=== PATIENT | female | born 1975 | race Caucasian/White ===

== ENCOUNTER 2017-08-13 06:15 | Observation (INO) | payer OTHER ==
[2017-08-13] MEDS ORDERED: SCOPOLAMINE HYDROBROMIDE 1 MG/3 DAYS PATCH TD ONE (07:07)
[2017-08-13] MEDS ORDERED: FLUMAZENIL 0.5 MG/5 ML MDV IVP PRN (07:07)
[2017-08-13] MEDS ORDERED: NS 1,000 ML IV ONE (07:07)
[2017-08-13] MEDS ORDERED: DEXAMETHASONE 10 MG/ML VIAL IVP ONE (07:07)
[2017-08-13] MEDS ORDERED: NALOXONE HCL 0.4 MG/ML INJ IVP PRN ×2 (07:07→08:27)
[2017-08-13] MEDS ORDERED: HEPARIN 10,000 UNIT/10 ML MDV IVP PRN (07:07)
[2017-08-13] MEDS ORDERED: PROTAMINE SULFATE 50 MG/5 ML VIAL IVP PRN (07:07)
[2017-08-13] MEDS ORDERED: MEPERIDINE 25 MG/ML SYR IVP PRN (07:07)
[2017-08-13] MEDS ORDERED: MIDAZOLAM 2 MG/2 ML VIAL IVP PRN (07:07)
[2017-08-13] MEDS ORDERED: KETOROLAC 30 MG/1 ML SDV IVP ONE (07:07)
[2017-08-13] MEDS ORDERED: fentaNYL 100 MCG/2 ML INJ IVP PRN (07:07)
[2017-08-13 08:16] LABS: INR 1.09 (0.83-1.16); PROTIME(PATIENT) 14.3 SEC (12.0-15.0)
[2017-08-13] MEDS ORDERED: HYDROmorphONE/DILAUDID 6 MG/30 ML PCA IV PRN (08:27)
--- NOTE | 2017-08-13 08:30 | PDGENHP ---
History & Physical Chief Complaint: SYMTOMATIC UERINE FIBROIDS History of Present Illness: PLEASE SEE PREVIOUS CONSULT. NO CHANGE SINCE CONSULT. Pertinent Past, Social, Family History: N/A Relevant Physical Exam: KNOWN FIBROIDS. Cardiorespiratory Assessment: RRR,CTA
--- NOTE | 2017-08-13 08:32 | PDPROPOC ---
Sedation Plan of Care Sedation Plan of Care: vital signs stable, mental status noted, patient educated of risks, benefits, alternatives, patient can tolerate sedation ASA Classification: ASA 1 Planned drugs: fentanyl, midazolam Mallampati Score: Class 1 Mallampati Reference Image: Patient passed 3-3-2 rule?: Yes
[2017-08-13] MEDS ORDERED: ONDANSETRON 4 MG/2 ML VIAL ONE (09:40)
[2017-08-13] MEDS ORDERED: IOPAMIDOL (ISOVUE-300) 100 ML BTL ONE (10:02)
[2017-08-13] MEDS ORDERED: BISACODYL 10 MG SUPP PR PRN (11:12)
[2017-08-13] MEDS ORDERED: PROMETHAZINE HCL 25 MG/ML INJ IVP PRN (11:12)
[2017-08-13] MEDS ORDERED: POLYETHYLENE GLYCOL 3350 17 GM PKT PO PRN (11:12)
[2017-08-13] MEDS ORDERED: ONDANSETRON 4 MG/2 ML VIAL IVP PRN (11:12)
[2017-08-13] MEDS ORDERED: MAGNESIUM HYDROXIDE 30 ML UDCUP PO PRN (11:12)
[2017-08-13] MEDS ORDERED: LACTULOSE 20 GM/30 ML UDCUP PO PRN (11:12)
[2017-08-13] MEDS ORDERED: NS 1,000 ML IV SCH (11:15)
--- NOTE | 2017-08-13 11:25 | PDRADPN ---
Radiology Procedure Note Date of Procedure: 08/13/17 Radiologist: Blanche Garcia Anesthesia: IV Sedation (fentanyl and versed) Pre-op Diagnosis: symptomatic fibroids Post-op Diagnosis: same Indication: worsening symptoms. See consult Procedure: UAE Finding(s): L>R UA distribution. Inf/Abcess present in the surg proc area at time of surgery?: No Depth: Superfical (Skin SQ) Complications: none
[2017-08-13] MEDS: KETOROLAC 30 MG/1 ML SDV IVP SCH ×2 (13:59→22:17)
[2017-08-13] MEDS: SENNOSIDES 17.6 MG/10 ML UDL PO SCH ×2 (16:18→22:07)
[2017-08-13] MEDS ORDERED: FUROSEMIDE 20 MG TAB PO PRN (21:58)
[2017-08-13] MEDS ORDERED: BIOTENE DRY MOUTH MOUTHWASH 237 ML BTL MM PRN (22:00)
[2017-08-13] MEDS ORDERED: SPIRONOLACTONE 25 MG TAB PO SCH ×2 (22:00→22:30)
[2017-08-13] MEDS ORDERED: HYDROCODONE/APAP 5/325 TAB PO PRN (22:01)
[2017-08-13] MEDS ORDERED: CARVEDILOL 25 MG TAB PO SCH (22:15)
[2017-08-13] MEDS: CARVEDILOL 25 MG TAB PO SCH (23:36)
[2017-08-13] MEDS: ACETAMINOPHEN 500 MG TAB PO PRN (23:36)
[2017-08-14] MEDS: KETOROLAC 30 MG/1 ML SDV IVP SCH ×2 (04:38→10:15)
[2017-08-14 04:50] VITALS: O2SAT 97
[2017-08-14] MEDS: ACETAMINOPHEN 500 MG TAB PO PRN (04:50)
[2017-08-14] MEDS: CARVEDILOL 25 MG TAB PO SCH (08:09)
[2017-08-14 08:10] VITALS: BP 87/55; PULSE 62
[2017-08-14 08:47] VITALS: RESP 18; TEMP 98.6
[2017-08-14] MEDS ORDERED: SPIRONOLACTONE 25 MG TAB PO SCH (09:00)
[2017-08-14] MEDS ORDERED: FUROSEMIDE 20 MG TAB PO SCH (09:00)
[2017-08-14] MEDS ORDERED: LOSARTAN POTASSIUM 25 MG TAB PO SCH (09:00)
[2017-08-14] MEDS ORDERED: levOFLOXACIN 500 MG/DEXTROSE 100 ML IV ONE (09:00)
--- NOTE | 2017-08-14 10:34 | SOAPPROG ---
SOAP Progress Note Assessment/Plan: Assessment: Right on course post UAE for symptomatic fibroids. Concerned about interaction between anti-inflammatories and her heart medication. We had an extensive discussion. [facility], there may be side effects. Short term, about a week, I feel is safe for this patient. We discussed the regiment and how to taper off of Ibuprofen within a week. Plan: 1. D/C home today 2. Detailed D/C instructions and phone numbers given to patient 3. Patient's home care specialist was present and expressed full understanding. 08/14/17 10:32 Subjective: No complaints. Has not used [employer] since early last evening. Did not feel well with OxyIR. has only been on Tylenol and Toradol. Objective: Vital Signs Temp Pulse Resp BP Pulse Ox 37 C 62 18 87/55 L 97 08/14/17 08:00 08/14/17 08:09 08/14/17 08:00 08/14/17 09:08 08/14/17 08:00 08/13/17 08/14/17 08/15/17 05:59 05:59 05:59 Intake Total 3065 Output Total 1950 600 Balance 1115 -600 PT 14.3 SEC (12.0-15.0) 08/13/17 07:55 INR 1.09 (0.83-1.16) 08/13/17 07:55 Groin incision without hematoma. Dressing removed; scopolamine patch removed. abd soft. ICD10 Worksheet Patient Problems: Problems Problem Status Onset Dysmenorrhea Acute Submucous uterine fibroid Acute
[2017-08-14] MEDS: SENNOSIDES 17.6 MG/10 ML UDL PO SCH (10:37)
[2017-08-14] MEDS ORDERED: IBUPROFEN 600 MG TAB PO SCH (12:00)
== END 2017-08-14 10:45 | disposition home or self-care (01) ==
LOC: FIMAGING 06:15 → F3E 11:12 → FOB 13:03
PROVIDERS: ADMIT Radiology Diagnostic Radiology; ATTEND Radiology Diagnostic Radiology
DX: D25.9 Leiomyoma of uterus, unspecified (principal); I11.0 Hypertensive heart disease with heart failure
CPT/HCPCS: 36247; 37243; 75736; 99152; 99153; C1769; C1894; G0378; J1100; J1170; J1644; J1885; J1956; J2250; J2310; J2405; J3010; Q9967